=== PATIENT | female | born 1985 | race Caucasian/White ===

== ENCOUNTER 2019-12-02 08:28 | Outpatient (NON) | payer BC, SELFPAY ==
[2019-12-02 19:01] LABS: SARS-CoV-2 RNA PCR Negative
== END 2019-12-02 08:29 ==
PROVIDERS: PCP Family Medicine
DX: Z20.828 Contact with and (suspected) exposure to other viral communicable diseases (principal); R05 Cough
CPT/HCPCS: 87635; C9803; U0003

== ENCOUNTER → 2020-09-13 10:46 | Outpatient (CLI) | payer BC, SELFPAY ==
--- NOTE | ~2020-09-13 | XR_ITS ---
XR foot RT min 3V DATE: 09/13/2020 11:03 INDICATION: Right foot pain, tenderness over second and third tarsometatarsal areas TECHNIQUE: 4 views COMPARISON: None FINDINGS: No recent fracture or dislocation, periosteal reaction or bone destruction is detected. Mil d hallux valgus and bunion deformity. IMPRESSION: No recent recent fracture or dislocation Mild hallux valgus and bunion deformity Reviewed, dictated and finalized at location B.
== END ==
PROVIDERS: PCP Physician Assistant Medical; Visit Provider Physician Assistant Medical
DX: M20.11 Hallux valgus (acquired), right foot (principal)
CPT/HCPCS: 73630

== ENCOUNTER → 2021-02-03 08:01 | Outpatient (CLI) | payer BC, SELFPAY ==
[2021-02-03 19:47] LABS: SARS-CoV-2 RNA PCR Positive
== END ==
PROVIDERS: PCP Family Medicine; Visit Provider Family Medicine
DX: U07.1 COVID-19 (principal)
CPT/HCPCS: C9803; U0003; U0005

== ENCOUNTER 2021-04-18 10:01 | Emergency (ER) | payer BC, SELFPAY ==
[2021-04-18 10:08] VITALS: BP 137/93; PULSE 84; RESP 16; TEMP 36.6; O2SAT 99
--- NOTE | 2021-04-18 10:20 | ED.URI ---
HPI - URI/Sore Throat General Chief Complaint: Upper Respiratory Infection Stated Complaint: Sore throat Time Seen by Provider: 04/18/21 10:23 Source: patient and RN notes reviewed Mode of arrival: ambulatory Limitations: no limitations History of Present Illness HPI Narrative: 35-year-old female presents with concern for sore throat for 2 weeks. She reports nasal drainage. She reports a history of asthma, she is not been using all of her medications recently for fear she might get thrush and make her sore throat worse. She reports a history of thrush in the past. She denies any current symptoms of thrush. She reports intermittent headaches. She denies cough, shortness of breath, fever, body aches, chills, sweats. She reports fatigue. MD elicited complaint: sore throat Related Data Home Medications Medication Instructions Recorded Confirmed cetirizine 10 mg tablet 10 mg PO DAILY 06/19/19 04/18/21 dupilumab 300 mg/2 mL subcutaneous 300 mg SUB-Q .D2cauxw ml 06/19/19 04/18/21 syringe fluticasone propionate 50 2 spray NASAL DAILY 06/19/19 04/18/21 mcg/actuation nasal spray,suspension fluticasone propionate 115 2 puff INHALATION BID 03/07/21 04/18/21 mcg-salmeterol 21 mcg/actuation HFA inhaler Allergies Allergy/AdvReac Type Severity Reaction Status Date / Time budesonide Allergy Unknown Verified 04/18/21 10:16 levofloxacin [From Levaquin] Allergy Unknown Verified 04/18/21 10:16 moxifloxacin Allergy Unknown Verified 04/18/21 10:16 Review of Systems Review of Systems: CONSTITUTIONAL: Denies malaise, chills, sweats, or fever. EYES: Denies visual changes, redness, or discharge. ENT: Reports rhinorrhea. Denies congestion, sinus pain, otalgia. Reports sore throat. CARDIOVASCULAR: Denies chest pain, palpitations, or edema. RESPIRATORY: Denies cough. Denies dyspnea. GASTROINTESTINAL: Denies abdominal pain, nausea, vomiting, diarrhea SKIN: Denies rash or itching. MUSCULOSKELETAL: Denies myalgia. NEUROLOGIC: Reports intermittent headache. All systems reviewed & are unremarkable except as noted in HPI and below PMFSH Past Medical History Medical History Capsulitis of metatarsophalangeal (MTP) joint of right foot Contusion of foot, right COVID-19 Interdigital neuroma of right foot Overweight (BMI 25.0-29.9) Surgical History Surgical History History of sinus surgery 2004 and 2009 Family History Family History Grandparent Hypertension Family history of cardiomyopathy Other Asthma Cerebrovascular accident HLD (hyperlipidemia) Social History Social History (Updated 03/07/21 @ 09:31 by Melissa Funez Ja) Alcohol intake: never Substance use: never Substance use type: does not use Additional occupation/education comments: Dental Hygienist Gender identity (if verbalized by the patient): Female Sexual Orientation (if Verbalized by the Patient): Straight or Heterosexual Comments At time of signature, agree with nursing past medical, surgical, social and family history. There is no relevant family history pertinent to the presenting complaint Exam Narrative: GENERAL: Well-appearing, well-nourished, and in no acute distress. HEAD: Normocephalic EYES: PERRLA, conjunctivae clear ENT: Nares clear, turbinates boggy, clear discharge. Mucous membranes moist. TM pearly james with sharp light reflex bilaterally; no tragal tenderness. Oropharynx not erythematous without lesions. Tonsils not enlarged and without exudate, no drooling, no hoarseness, no trismus, uvula midline. NECK: Supple. No lymphadenopathy CHEST: Clear to auscultation, breath sounds equal. No wheezing, rhonchi, rales, or stridor. No respiratory distress, speaks in full sentences. HEART: Regular rate and rhythm. No murmur heard. SKIN: Warm, dry, no rash.
== END 2021-04-18 10:45 | disposition home or self-care (01) ==
PROVIDERS: Emergency Provider Nurse Practitioner; PCP Family Medicine
DX: J02.9 Acute pharyngitis, unspecified (principal); Z86.16 Personal history of COVID-19; E66.3 Overweight; Z68.29 Body mass index [BMI] 29.0-29.9, adult
CPT/HCPCS: 87880; 99213; G0463

== ENCOUNTER → 2022-08-14 15:27 | Outpatient (CLI) | payer OTHER, SELFPAY ==
--- NOTE | ~2022-08-14 | XR_ITS ---
XR cervical spine 4-5V DATE: 08/14/2022 15:51 INDICATION: Neck pain, right arm numbness. No recent injury. TECHNIQUE: AP, open-mouth, lateral, swimmer views COMPARISON: March 29, 2012 MR cervical spine March 08, 2012 cervical spine FINDINGS: There is chronic minimal anterolisthesis at C4-5, also present on 03/08/2012. C1 and C2 are normally aligned and the odontoid process is intact. No fracture or dislocation or lock ed facet or prevertebral soft tissue swelling is detected. There is mild loss of height at C4-5 and C5-6, mild posterior spurring at C5-6. IMPRESSION: Chronic minimal anterolisthesis at C4-5 Mild to moderate degenerative disc disease at C4-5 and C5-6 Reviewed, dictated and finalized at location A.
--- NOTE | ~2022-08-14 | XR_ITS ---
XR shoulder RT min 2V DATE: 08/14/2022 15:51 INDICATION: Right shoulder pain and numbness. No recent injury. TECHNIQUE: 4 views COMPARISON: None FINDINGS: No fracture or dislocation, periosteal reaction or bone destruction. No abnormal calcificat ion. IMPRESSION: Negative Reviewed, dictated and finalized at location A. IMPRESSION: Negative
== END ==
PROVIDERS: PCP Family Medicine; Visit Provider Family Medicine
DX: M79.631 Pain in right forearm (principal); M50.322 Other cervical disc degeneration at C5-C6 level
CPT/HCPCS: 72050; 73030

== ENCOUNTER 2022-08-31 10:18 | Outpatient (CLI) | payer OTHER, SELFPAY ==
[2022-08-31 14:08] LABS: Alanine Aminotransferase 21 U/L (6-35); Albumin Level 4.3 g/dL (3.5-5.1); Alkaline Phosphatase 77 U/L (38-126); Anion Gap 2 mmol/L (8-16); Aspartate Amino Transferase 41 U/L (14-36); Bilirubin,Total 0.6 mg/dL (0.2-1.3); Blood Urea Nitrogen 14 mg/dL (7-17); Calcium 8.8 mg/dL (8.4-10.2); Carbon Dioxide 33 mmol/L (22-30); Chloride 102 mmol/L (98-107); Cholesterol 250 mg/dL (0-200); Estimated Glomerular Filt Rate > 60; Glucose 91 mg/dL (65-110); HDL Direct 61 mg/dL; Potassium 3.7 mmol/L (3.4-5.0); Sodium 137 mmol/L (137-145); Triglycerides 141 mg/dL (<150)
[2022-08-31 14:20] LABS: LDL Cholesterol Direct 137 mg/dL
[2022-08-31 14:29] LABS: Free T4 Free Thyroxine 1.19 ng/mL (0.78-2.19); Vitamin D 25 Hydroxy 48.5 ng/mL
[2022-08-31 23:13] LABS: Hemoglobin A1C 5.9 % (<5.7)
[2022-09-03 02:48] LABS: DHEA-Sulfate 210 mcg/dL (23-266); Thyroid Peroxidase Antibodies <1 IU/mL (<9)
[2022-09-04 13:01] LABS: Testosterone Free 1.5 pg/mL (0.2-5.0); Testosterone Total 40 ng/dL (2-45)
== END 2022-08-31 10:19 | disposition home or self-care (01) ==
PROVIDERS: PCP Family Medicine; Visit Provider Internal Medicine
DX: R53.83 Other fatigue (principal); R63.5 Abnormal weight gain
CPT/HCPCS: 36415; 80053; 80061; 82306; 82607; 82627; 83036; 84402; 84403; 84439; 84443; 86376

== ENCOUNTER 2022-09-04 08:35 | Outpatient (CLI) | payer OTHER, SELFPAY ==
[2022-09-15 17:46] LABS: Cortisol, Saliva 0.29 mcg/dL
== END 2022-09-04 08:36 | disposition home or self-care (01) ==
PROVIDERS: PCP Family Medicine; Visit Provider Internal Medicine
DX: R63.5 Abnormal weight gain (principal); R53.83 Other fatigue
CPT/HCPCS: 82530

== ENCOUNTER 2022-09-05 09:43 | Outpatient (NON) | payer OTHER, SELFPAY ==
[2022-09-13 22:52] LABS: Cortisol, Saliva 0.32 mcg/dL
== END 2022-09-05 09:44 | disposition home or self-care (01) ==
PROVIDERS: PCP Family Medicine; Visit Provider Internal Medicine
DX: R63.5 Abnormal weight gain (principal)
CPT/HCPCS: 82530

== ENCOUNTER 2022-11-07 11:12 | Outpatient (CLI) | payer OTHER, SELFPAY | END 2022-11-07 11:13 | disposition home or self-care (01) | LOC: ANHSURGERY 11:16 | PROVIDERS: PCP Family Medicine; Visit Provider Surgery | DX: K43.6 Other and unspecified ventral hernia with obstruction, without gangrene (principal); Z01.818 Encounter for other preprocedural examination | CPT/HCPCS: 36415; 86850; 86900; 86901 ==

== ENCOUNTER 2022-11-14 01:41 | Day surgery (SDC) | payer OTHER, SELFPAY ==
[2022-11-06 08:37] VITALS: BMI 31.3
--- NOTE | 2022-11-06 08:45 | PC.NURSE ---
Report to the Outpatient Waiting Room, entrance under the green pavilion located off [facility], at time 10:00 on date 11/14/22. Planned Procedure Time: 12:00. Time changes happen often and if your time is changed the preop area will call you the afternoon before. - You and your visitor will be asked to self-screen and do not enter if you have any COVID symptoms. - A mask is optional within the hospital at this time. Patients may have clear liquids (water, carbonated beverages, clear teas, apple juice) until 3 hours prior to surgery (9:00) with a maximum of 20 ounces. - No food from midnight until time of surgery Take the following medications with a SIP of water the morning of surgery: INHALER, ESCITALOPRAM, FLUOXETINE DO NOT STOP ANY OF YOUR OTHER PRESCRIPTION MEDICATIONS PRIOR TO SURGERY ?EXCEPT THE FOLLOWING Medications to discontinue per physician: VITAMINS/SUPPLEMENTS Date to take last dose: 11/10/22 Please no make-up, nail yi, hairspray, perfume, deodorant, or body powder the day of surgery. No jewelry (including any body piercings) or valuables the day of surgery, leave them at home. Please take a shower or bath the night before, or the morning of, surgery with an antibacterial soap (HIBICLENS). Wear comfortable, loose fitting clothing. - Jewelry must be removed prior to entering the operating room. Rings and piercings that are not removed may be cut off. - The hospital will not accept responsibility for valuables. - Please leave all valuables, including medications, at home the day of surgery. If you are going home after surgery, a licensed driver salesman must drive you home. - NO public transportation without another adult if you receive anesthesia. - We recommend that an adult stay with you for 24 hours following discharge. - We also recommend that you do not drive, make important decision, drink alcoholic beverages, or take any drugs that were not prescribed by your health care provider for at least 24 hours after your discharge time. Follow any additional instructions given to you from your surgeon. If you or anyone in your household have experienced Covid symptoms in the past week, please notify your surgeon or the nurse liaison at the phone number below for possible testing. Telephone instructions given to PT - JOCELYNE CLEMENT and asked if any additional questions and then verbalized understanding. Patient advised to call surgeon office or pre surgery nurse liaison [phone] if any additional questions.
[2022-11-14] VITALS (9 sets, daily range): BP systolic 110–124; BP diastolic 66–76; PULSE 72–96; RESP 14–17; TEMP 36.3–36.4; O2SAT 96–100
[2022-11-14] MEDS: LACTATED RINGERS 1,000 ML 30 ML IV CONT ×2 (10:30→16:35)
[2022-11-14 11:00] LABS: Glucose Point of Care 81 mg/dl (65-105)
--- NOTE | 2022-11-14 12:44 | WPDANESEPPF ---
Anes - Initial Pre Proc Eval Procedure: Operation Date: 11/14/22 12:00 Proposed Procedures p Robotic Assisted Laparoscopic Ventral Hernia Repair with Mesh - Cosme Bee MD Date/Time: 11/14/22 12:44 Surgeon: Cosme Bee MD Pre Op Diagnosis: [facility] ventral hernia Patient Data Age: 37 Gender: F Height: 1.7 m Weight: 89.2 kg Last Vital Signs Temp 36.3 C L 11/14/22 11:15 Pulse 84 11/14/22 11:15 Resp 16 11/14/22 11:15 BP 110/75 11/14/22 11:15 Pulse Ox 99 11/14/22 11:15 O2 Del Method Room Air 11/14/22 11:15 Allergies Allergy/AdvReac Type Severity Reaction Status Date / Time Quinolones Allergy Unknown Joint Pain Verified 11/06/22 08:34 montelukast [From Singulair] AdvReac Unknown Depression Verified 11/06/22 08:34 Home Medications Medication Instructions Recorded Confirmed Type dupilumab 300 mg/2 mL subcutaneous 300 mg subcut .[id number] 06/19/19 11/06/22 History syringe (Dupixent) fluticasone propionate 50 2 spray intranasal DAILY 06/19/19 11/06/22 History mcg/actuation nasal spray,suspension fluticasone propionate 115 2 puff inhalation BID 03/07/21 11/06/22 History mcg-salmeterol 21 mcg/actuation HFA inhaler (Advair HFA) norgestimate-ethinyl estradiol 1 tablet PO DAILY 12/15/21 11/06/22 History 0.18 mg/0.215mg/0.25mg-35 mcg(28)tablet (Tri-Sprintec (28)) fluoxetine 20 mg capsule (Prozac) 20 mg PO DAILY #90 caps 08/14/22 11/06/22 Rx dextroamphetamine-amphetamine ER 20 mg PO DAILY #30 caps 08/24/22 11/06/22 Rx 20 mg 24hr capsule,extend release (Adderall XR) cholecalciferol (vitamin D3) 125 125 mcg PO DAILY 08/29/22 11/06/22 History mcg (5,000 unit) capsule escitalopram oxalate 20 mg tablet See Rx Instructions .Route 11/03/22 11/06/22 Rx .COMPLEX #90 tabs loratadine 10 mg tablet (Claritin) 10 mg PO DAILY 11/06/22 11/06/22 History vitamin B complex 1 tablet PO DAILY 11/06/22 11/06/22 History Laboratory Tests 11/14/22 10:51 POC Capillary Glucose 81 mg/dl (65-105) Patient hx anesthesia problems: none Family hx anesthesia problems: none Results Review: All pre-operative results and documents have been reviewed as part of the pre-operative evaluation. [facility] Past Medical History Medical History Asthma Attention-deficit hyperactivity disorder, unspecified type Binge eating disorder Capsulitis of metatarsophalangeal (MTP) joint of right foot Cervicalgia Contusion of foot, right COVID-19 Degenerative, intervertebral disc, cervical C4-5, C5-6 Depression Gastroesophageal reflux disease without esophagitis Hemiplegic migraine, not intractable, without status migrainosus Interdigital neuroma of right foot Nasal polyp, unspecified Overweight (BMI 25.0-29.9) Psoriasis, unspecified Rotator cuff impingement syndrome of right shoulder Seborrheic dermatitis, unspecified Severe persistent asthma with exacerbation Spinal stenosis in cervical region Tension headache Surgical History Surgical History History of sinus surgery 2004 and 2009 Family History Family History Grandparent Hypertension Family history of cardiomyopathy CHD (congenital heart disease) Cerebrovascular accident Depression Mother Heart disease Depression Father Depression Heart disease Other HLD (hyperlipidemia) Social History Social History Smoking status: Never smoker Alcohol intake: current Alcohol use details: 2/MONTH Substance use: current Substance use type: marijuana Other substance usage details: EDIBLE MONTHLY Lack of Transportation: No Lack of Food: Never True Current Housing: I Have Housing Concerned About Future Housing: No Difficulty Paying Gas/Electric Bills: No Difficulty Paying for Meds:
--- NOTE | 2022-11-14 12:54 | PM.IMHP ---
H&P: HPI History of Present Illness Date/Time: 11/14/22 12:54 Chief Complaint: Incarcerated ventral hernia Narrative: Farida is a 37 y/o female who presents with an umbilical hernia at the request of Dr. Esteban. She started experiencing symptoms in 2016 with her first . She states the area above her umbilicus is tender with activity and when coughing. She reports gaining about 20lbs recently and does not notice a bulge quite as much. She is having regular BM's without difficulty. She has a surgical history of bilateral inguinal hernias as a child.? Review of Systems Review of Systems: The remainder of the review of systems to include constitutional, HEENT, cardiovascular, respiratory, GI, , integumentary, musculoskeletal, endocrine, immunologic, hematologic, psychiatric, and neurologic are all negative except for which is mentioned above in the HPI. [facility] Past Medical History Medical History Asthma Attention-deficit hyperactivity disorder, unspecified type Binge eating disorder Capsulitis of metatarsophalangeal (MTP) joint of right foot Cervicalgia Contusion of foot, right COVID-19 Degenerative, intervertebral disc, cervical C4-5, C5-6 Depression Gastroesophageal reflux disease without esophagitis Hemiplegic migraine, not intractable, without status migrainosus Interdigital neuroma of right foot Nasal polyp, unspecified Overweight (BMI 25.0-29.9) Psoriasis, unspecified Rotator cuff impingement syndrome of right shoulder Seborrheic dermatitis, unspecified Severe persistent asthma with exacerbation Spinal stenosis in cervical region Tension headache Surgical History Surgical History History of sinus surgery 2004 and 2009 Family History Family History Grandparent Hypertension Family history of cardiomyopathy CHD (congenital heart disease) Cerebrovascular accident Depression Mother Heart disease Depression Father Depression Heart disease Other HLD (hyperlipidemia) Social History Social History Smoking status: Never smoker Alcohol intake: current Alcohol use details: 2/MONTH Substance use: current Substance use type: marijuana Other substance usage details: EDIBLE MONTHLY Lack of Transportation: No Lack of Food: Never True Current Housing: I Have Housing Concerned About Future Housing: No Difficulty Paying Gas/Electric Bills: No Difficulty Paying for Meds: No Currently Unemployed: No Education: Associate Degree Difficulty w/ Childcare or Family Care: No Living arrangements: with family Occupation/Education: occupation Additional occupation/education comments: Dental Hygienist Gender identity (if verbalized by the patient): Female Sexual Orientation (if Verbalized by the Patient): Straight or Heterosexual Spiritual care concerns: No Meds Home Medications and Allergies Home Medications Medication Instructions Recorded Confirmed Type dupilumab 300 mg/2 mL subcutaneous 300 mg subcut .[id number] 06/19/19 11/06/22 History syringe (Dupixent) fluticasone propionate 50 2 spray intranasal DAILY 06/19/19 11/06/22 History mcg/actuation nasal spray,suspension fluticasone propionate 115 2 puff inhalation BID 03/07/21 11/06/22 History mcg-salmeterol 21 mcg/actuation HFA inhaler (Advair HFA) norgestimate-ethinyl estradiol 1 tablet PO DAILY 12/15/21 11/06/22 History 0.18 mg/0.215mg/0.25mg-35 mcg(28)tablet (Tri-Sprintec (28)) fluoxetine 20 mg capsule (Prozac) 20 mg PO DAILY #90 caps 08/14/22 11/06/22 Rx dextroamphetamine-amphetamine ER 20 mg PO DAILY #30 caps 08/24/22 11/06/22 Rx 20 mg 24hr capsule,extend release (Adderall XR) cholecalciferol (vitamin D3) 125 125 mcg PO DAILY 08/29/22 11/06/22 History mcg (5,000
--- NOTE | 2022-11-14 12:57 | WPDHPUPDATE1 ---
History and Physical Update Update Date/Time: 11/14/22 12:57 History and Physical has been reviewed, including an updated exam of the patient. There are NO changes in the patient's condition. Risks, benefits, and alternatives have been discussed and questions answered. Patient agrees to proceed with procedure.
[2022-11-14] MEDS: ceFAZolin 2 GM/D5W 50 ML 2 GM/50 ML BAG IVPB (13:58)
[2022-11-14] MEDS: LIDO 1%/EPINEPHRINE 1:100,000 50 ML VIAL 30 ML INFILTRATE (14:37)
--- NOTE | 2022-11-14 16:27 | P.OPB_ITS ---
Procedure Note - Brief Procedure Note - Brief Date of procedure: 11/14/22 [facility] ventral hernia Post-op diagnosis: Same Procedure performed: Robotic assisted laparoscopic YULISSA incarcerated ventral hernia repair with Bard Ventralight ST mesh Surgeon: Cosme Bee MD Materials And Corrosion Engineer: KRYSTEN Patel Anesthesia: GETA Implants: Bard Ventralight ST mesh 10 x 15 cm Estimated blood loss (mL): 25 Drains: No Packing: No Pathology: None sent Complications: No immediate complications Condition: Stable Disposition: PACU
[2022-11-14] MEDS: fentaNYL CITRATE INJ (*CRX) 100 MCG/2 ML VIAL 25 MCG IV PUSH ×2 (16:59→17:02)
[2022-11-14] MEDS: oxyCODONE HCL (*CRX) 5 MG TAB IR PO (17:30)
--- NOTE | 2022-11-16 13:06 | W.PM.PROC2 ---
Procedure Note - Detailed Date of Procedure 11/14/22 Pre-op Diagnosis incarc ventral hernia Post-op Diagnosis Same Procedure Performed Robotic assisted laparoscopic ventral hernia repair with trans abdominal preperitoneal placement of Bard Ventralight ST mesh Surgeon Cosme Bee MD Advertisement Distributor Traec Mcfarland, KRYSTEN Tejeda Anesthesia General Indications Patient is a 37-year-old female who presented with a bulge in the supraumbilical region of the abdominal wall causing some mild tenderness on examination she appeared to have an incarcerated periumbilical or supraumbilical ventral hernia. She presents now for a robotic assisted laparoscopic ventral hernia repair with mesh. Preoperative assessment of the hernia defect revealed it to be approximately 2cm in diameter but unable to fully tell due to incarceration of contents. Findings At the time of surgery there are actually 3 small defects in the area the largest of which was 3.5cm in diameter followed by a smaller 1 very close to it measuring 2.5cm diameter and lastly another very small about 1cm in diameter. All 3 of these defects were by small bridge of intact fascia causing this Finnish-cheese affect of the defect. Total aggregate defect size was approximately 7cm in diameter and each of the defects were by less than 2cm. Incarcerated within the defect were preperitoneal fat and a portion of the falciform ligament. Description of Procedure After informed consent was obtained patient was brought to the operating room where she was placed supine position and general endotracheal anesthesia was administered. A Hua catheter was placed decompress the bladder. The abdomen was then prepped and draped in usual sterile fashion. A time-out was then performed correctly identifying the patient as well as procedure to be performed. She was verified to be getting perioperative IV antibiotics. I then started by placing a 10mm Optiview port in left upper quadrant with a direct optical insertion. Once inside the abdomen insufflated to adequate pneumoperitoneum of 15mmHg of CO2. I then placed additional body trocar ports on the left side of the abdomen under direct visualization without difficulty. Visualizing the undersurface of the anterior abdominal wall there were no obvious defects to be seen initially and it appeared that the defects were covered with preperitoneal fat and a portion of the falciform ligament. I then had [employer] robot brought to the patient's bedside and docked to the right side of the patient. The robotic arms were then docked to the robotic ports and the robotic instruments were advanced into the abdomen under direct visualization. I then scrubbed out the procedure to sit down at the robotic console to perform the dissection. Utilizing robotic hook dissection I then incised the peritoneum to the left of the defect and then entered the preperitoneal plane. I then created the preperitoneal flap identifying the there were multiple small fascial defects in a with cheese configuration the 3 defects were relatively close in location but by small intact fascial bridges.. I then proceeded to reduce the preperitoneal fat with robotic dissection and found that the largest defect contained a portion of the falciform ligament. After all the incarcerated fatty tissue was reduced out of the defects I then measured the defects in the largest 1 measured 3.5cm diameter. A 2nd small defect was 2.5cm diameter and a 3rd smaller defect was only 1cm in diameter. I then continued creation of the preperitoneal flap the right side of the abdominal wall and once I felt I had adequate preperitoneal dissection I then measured the space and felt that a piece of Ventralight ST mesh measuring 15cm in length by 10cm in width would adequately cover the hernia defects. I then closed the multiple hernia defects primarily utilizing 0 absorbable V lock sutures. All 3 defects were ivy
== END 2022-11-14 18:08 | disposition home or self-care (01) ==
PROVIDERS: PCP Family Medicine; Visit Provider Surgery
PROC: (CPT 49594; principal; 2022-11-14 12:00)
DX: K43.6 Other and unspecified ventral hernia with obstruction, without gangrene (principal); F90.9 Attention-deficit hyperactivity disorder, unspecified type; J45.909 Unspecified asthma, uncomplicated; K21.9 Gastro-esophageal reflux disease without esophagitis; F32.A Depression, unspecified; L40.9 Psoriasis, unspecified; F12.90 Cannabis use, unspecified, uncomplicated; Z79.620 Long term (current) use of immunosuppressive biologic; Z79.51 Long term (current) use of inhaled steroids
CPT/HCPCS: 49594; S2900; 36415; 82948; 86850; 86900; 86901; A9270; C1781; J0690; J1100; J1170; J1885; J2250; J2405; J2704; J3010; J7120

== ENCOUNTER 2023-03-26 19:18 | Outpatient (NON) | payer OTHER, SELFPAY | END 2023-03-26 19:19 | disposition home or self-care (01) | LOC: ANHGOSHLAB 19:20 | PROVIDERS: PCP Family Medicine; Visit Provider Physician Assistant | DX: J02.9 Acute pharyngitis, unspecified (principal) | CPT/HCPCS: 87070 ==

== ENCOUNTER 2023-06-11 08:31 | Outpatient (CLI) | payer OTHER, SELFPAY ==
--- NOTE | 2023-06-26 13:42 | WPDSLEEPSTUD ---
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 The patient denies awakening from sleep short of breath. She denies awakening at night with heartburn, belching or cough. She rarely snores and a is rarely loud enough that others complain. She rarely has trouble sleeping when she has a cold. She denies waking up gasping for air throughout the night. She denies having breathing problems at night observed by herself or others. She occasionally sweats excessively at night. He denies having heart palpitations or irregular heartbeats during the night. She constantly falls asleep during the day and frequently falls asleep while driving. She rarely experiences loss of muscle tone when extremely emotional. She frequently has trouble at school or work due to sleepiness. She frequently feels unable to move while waking up or falling asleep. She rarely experiences vivid dreamlike scenes upon awakening or falling asleep. She denies feeling afraid of going to sleep. She denies having nightmares. She denies remembering her dreams. She rarely has thoughts racing through her mind. She frequently feels sad, depressed and anxious. She denies having muscular tension. She rarely notices parts of her body jerk. She rarely kicks during the night. She frequently has crawling and aching feelings in her legs but denies having leg pain during the night. She rarely grinds her teeth during sleep and rarely awakens with morning jaw pain. She is occasionally bothered by pain during the day and occasionally awakened by pain during the night. She rarely wakes up feeling stiff in the morning. She occasionally wakes up with sore or achy muscles. She occasionally wakes up with pain in the neck, spine or other joints. She goes to bed between 8-10 p.m. on both weekdays and weekends. She is able to fall asleep immediately. She wakes up 1-2 times throughout the night for unknown reasons and she will stay on her phone for 1-2 hours until she is able to fall asleep. She wakes up between 6-8 a.m. on weekdays and between 8-10 a.m. on the weekends. She typically gets 6-10 hours of sleep per night. She will stay in bed as long as she can after waking up in the morning until her kids get her up. She lives with her and 2 children. She denies consuming any caffeinated beverages within 2 hours of bedtime. She denies engaging in physical exercise before bedtime. She will watch television before falling asleep. She will occasionally take naps in the afternoon or the evening but they are not refreshing. She consumes 1-2 caffeinated beverages up to 3 times per week. She denies tobacco, alcohol and recreational drug use. [facility] Past Medical History Medical History Asthma Attention-deficit hyperactivity disorder, unspecified type Binge eating disorder Capsulitis of metatarsophalangeal (MTP) joint of right foot Cervicalgia Contusion of foot, right COVID-19 Degenerative, intervertebral disc, cervical C4-5, C5-6 Depression Gastroesophageal reflux disease without esophagitis Hemiplegic migraine, not intractable, without status migrainosus Interdigital neuroma of right foot Nasal polyp, unspecified Overweight (BMI 25.0-29.9) Pre-diabetes Psoriasis, unspecified Rotator cuff impingement syndrome of right shoulder Seborrheic dermatitis, unspecified Severe persistent asthma with exacerbation Spinal stenosis in cervical region Tension headache Surgical History Surgical History H/O
[2023-06-26 13:43] VITALS: BMI 31.3
[2023-06-26 13:59] VITALS: BMI 31.3
--- NOTE | 2023-06-26 13:59 | WPDSLEEPSTUD ---
Sleep Study Date of Study: 06/11/23 Ordering Provider: Haleigh Hoffmann DO Interpreting Physician: Haleigh Hoffmann DO Sleep Study Type: Multiple Sleep Latency Test Height: 1.7 m Weight: 90.718 kg Body Mass Index: 31.3 Neck Circumference (inches): 12 Samson: 20 Reason for Sleep Study Hypersomnia Sleep History The patient is a 37-year-old female who works as a dental hygienist that had a sleep study ordered for hypersomnia. The patient denies awakening from sleep short of breath. She denies awakening at night with heartburn, belching or cough. She rarely snores and a is rarely loud enough that others complain. She rarely has trouble sleeping when she has a cold. She denies waking up gasping for air throughout the night. She denies having breathing problems at night observed by herself or others. She occasionally sweats excessively at night. He denies having heart palpitations or irregular heartbeats during the night. She constantly falls asleep during the day and frequently falls asleep while driving. She rarely experiences loss of muscle tone when extremely emotional. She frequently has trouble at school or work due to sleepiness. She frequently feels unable to move while waking up or falling asleep. She rarely experiences vivid dreamlike scenes upon awakening or falling asleep. She denies feeling afraid of going to sleep. She denies having nightmares. She denies remembering her dreams. She rarely has thoughts racing through her mind. She frequently feels sad, depressed and anxious. She denies having muscular tension. She rarely notices parts of her body jerk. She rarely kicks during the night. She frequently has crawling and aching feelings in her legs but denies having leg pain during the night. She rarely grinds her teeth during sleep and rarely awakens with morning jaw pain. She is occasionally bothered by pain during the day and occasionally awakened by pain during the night. She rarely wakes up feeling stiff in the morning. She occasionally wakes up with sore or achy muscles. She occasionally wakes up with pain in the neck, spine or other joints. She goes to bed between 8-10 p.m. on both weekdays and weekends. She is able to fall asleep immediately. She wakes up 1-2 times throughout the night for unknown reasons and she will stay on her phone for 1-2 hours until she is able to fall asleep. She wakes up between 6-8 a.m. on weekdays and between 8-10 a.m. on the weekends. She typically gets 6-10 hours of sleep per night. She will stay in bed as long as she can after waking up in the morning until her kids get her up. She lives with her and 2 children. She denies consuming any caffeinated beverages within 2 hours of bedtime. She denies engaging in physical exercise before bedtime. She will watch television before falling asleep. She will occasionally take naps in the afternoon or the evening but they are not refreshing. She consumes 1-2 caffeinated beverages up to 3 times per week. She denies tobacco, alcohol and recreational drug use. [facility] Past Medical History Medical History Asthma Attention-deficit hyperactivity disorder, unspecified type Binge eating disorder Capsulitis of metatarsophalangeal (MTP) joint of right foot Cervicalgia Contusion of foot, right COVID-19 Degenerative, intervertebral disc, cervical C4-5, C5-6 Depression Gastroesophageal reflux disease without esophagitis Hemiplegic migraine, not intractable, without status migrainosus Interdigital neuroma of right foot Nasal polyp, unspecified Overweight (BMI 25.0-29.9) Pre-diabetes Psoriasis, unspecified Rotator cuff impingement syndrome of right shoulder Seborrheic dermatitis, unspecified Severe persistent asthma with exacerbation Spinal stenosis in cervical region Tension headache Surgical History Surgical History (Reviewed 06/26/23 @ 14:00 by Haleigh Anderson
== END 2023-06-12 16:15 | disposition home or self-care (01) ==
LOC: ANHCSM 08:32
PROVIDERS: PCP Family Medicine; Visit Provider Family Medicine
DX: G47.19 Other hypersomnia (principal); G47.61 Periodic limb movement disorder
CPT/HCPCS: 95805; 95810

== ENCOUNTER 2023-06-26 10:09 | Outpatient (CLI) | payer OTHER, SELFPAY ==
--- NOTE | ~2023-06-26 | MR_ITS ---
MRI of the right shoulder Technique: Axial proton-density fat-sat images, coronal proton density fat-sat and T2 fat-sat images, and sagittal T1-weighted and T2 fat-sat images were acquired. Clinical History: Instability Findings: There is mild AC joint degenerative change, with small subacromial spur present. Coracoclav icular, coracoacromial, and coracohumeral ligaments are intact. Supraspinatus and infraspinatus tendons are intact, without partial or full thickness tear. There is mild tendinosis. Subscapularis tendon is intact, with mild tendinosis. Tendon of the long head of the biceps is intact. There is probable focal superior labral tear. Inferior glenohumeral ligament is intact. No degenerative change or effusion of the glenohumeral join t. No fluid distention of the subacromial/subdeltoid bursa. No muscle atrophy or edema. Impression: Probable focal superior labral tear. Reviewed, dictated and finalized at location . Impression: Probable focal superior labral tear.
== END 2023-06-26 10:10 ==
LOC: MICIMG 10:12
PROVIDERS: PCP Orthopaedic Surgery; Visit Provider Orthopaedic Surgery
DX: M25.311 Other instability, right shoulder (principal); M48.02 Spinal stenosis, cervical region; M75.41 Impingement syndrome of right shoulder
CPT/HCPCS: 73221

== ENCOUNTER 2024-10-24 08:50 | Outpatient (CLI) | payer OTHER, SELFPAY ==
--- OUTSIDE RECORDS SUMMARY | 2023-07-03 12:30 | XMS_ITS ---
Author Organization [facility] ([address]) Address [address] [place] [address] Care Team Providers Care Supervisor Agricultural Education Name Role Phone Remi Rodriguez M.D. Primary Care Provider Mary Cristopher Power Unavailable [phone] Emmanuel Hall Unavailable Unavailable Michael Slater [phone] REASON FOR VISIT INTERIOR BLOCK WIRER Weight Loss Social History Sex Assigned At : Social History Observation Description Sex Assigned At Female Encounters Encounter Location Date Provider Diagnosis [facility] ([address]) [address] [address] 07/03/2023 Michael Slater Plan Of Treatment No Information Progress Notes * Neena CLEMENTaDOB:1985 ( 39 yo F)Acc No.[id number]:07/03/2023 INTERIOR BLOCK WIRER Weight Loss Patient: Farida WOODALL Provider: Roque Slater MD :1985 A ge:37 Y S ex:Female Date:07/03/2023 Address:[address] [facility] [address] [id number] Pcp:Remi Rodriguez M.D. Subjective: * Chief Complaints: * 1 . INTERIOR BLOCK WIRER Weight Loss. * Medical History: Objective: * Vitals: Assessment: Plan: * Treatment: * Billing Information: * Visit Code: * Procedure Codes: * Electronic signature of Cornelio Slater MD, FAAAAI on 10/24/2024 at 09:03 AM CDT Sign off status: Pending * Provider: Roque Slater MD Date: 0 07/03/2023 Generated for Mary garcia/Yessenia/Francisco on: 0 10/24/2024 09:03 AM CDT
--- OUTSIDE RECORDS SUMMARY | 2023-07-28 16:30 | XMS_ITS ---
Author Organization [employer] [facility] [place] ([address]) Address [address] [place] [address] Care Team Providers Care Weed Burner Name Role Phone Remi Rodriguez M.D. Primary Care Provider Mary Cristopher Power Unavailable [phone] Emmanuel Hall Unavailable Unavailable [employer], Provider Unavailable Unavailab le Allergies Allergen (clinical drug ingredient) Drug/Non Drug Allergy documented on EMR Reaction Allergy Type Onset Date Status levofloxacin levoFLOXacin other reaction Drug Allergy Active montelukast Singulair other reaction Drug Allergy Active REASON FOR VISIT [facility] To [facility] Conversion Encounter Medications Medication SIG (Take, Route, Frequency, Duration) Notes Start Date End Date Status AEROCHAMBER MDI SPACER - MOUTHPIECE (ADULT) N/A DIRECTED PO PER ASTHMA ACTION PLAN; Duration: 30 DAY(S) *Please review for potential replacement for e-prescription and drug interaction check* Active DUPIXENT (DUPILUMAB) 300 MG/2 ML 300 MG SUBCUATNEOUS INJECTION EVERY OTHER WEEK; Duration: 120 DAYS *Please review for potential replacement for e-prescription and drug interaction check* Active Advair HFA 230-21 MCG/ACT 2 puff(s) inhaled 2 times a day; Duration: 30 day(s) Active PROAIR HFA 90 MCG/INH 2 PUFF(S) INHALED 4 TIMES A DAY *Please review for potential replacement for e-prescription and drug interaction check* Active Albuterol Sulfate (5 MG/ML) 0.5% 0.5 mL by nebulizer every 6 hours Active Singulair 10 MG 1 tab(s) orally once a day Not-Taking Flonase Allergy Relief 50 MCG/ACT 1 spray(s) intranasally once a day Active ZyrTEC Allergy 10 MG 1 tab(s) orally once a day Active Benzonatate 100 MG 1 cap(s) orally 3 times a day; Duration: 5 day(s) 11/15/2021 Not-Taking NASAL WASHES N/A DIRECTED INTRANASALLY NEEDED; Duration: 30 *Please review for potential replacement for e-prescription and drug interaction check* Active Wellbutrin XL 300 MG 1 tab(s) orally every 24 hours; Duration: 30 day(s) Not-Taking Adderall XR 20 MG 1 cap(s) orally once a day (in the morning); Duration: 30 day(s) Not-Taking CONTROL PILL 1 TABLET BY MOUTH DAILY; Duration: 30 DAYS *Please review for potential replacement for e-prescription and drug interaction check* Active Lexapro 20 MG 1 tab(s) orally once a day Active predniSONE 20 MG 1 tab(s) orally once a day; Duration: 7 day(s) 11/15/2021 Not-Taking LISDEXAMFETAMINE 40 MG 1 CAP(S) ORALLY ONCE A DAY (IN THE MORNING) *Please review for potential replacement for e-prescription and drug interaction check* Active Social History Sex Assigned At : Social History Observation Description Sex Assigned At Female Encounters Encounter Location Date Provider Diagnosis [address] [address] 07/28/2023 Provider Mone Severe persistent asthma, uncomplicated J45.50 and Allergic rhinitis due to pollen J30.1 Assessments Encounter Date Diagnosis (ICD Code) Assessment Notes Treatment Notes Treatment Clinical Notes Section Notes 07/28/2023 Severe persistent asthma, uncomplicated (ICD-10 - J45.50) 07/28/2023 Allergic rhinitis due to pollen (ICD-10 - J30.1) Plan Of Treatment Medication Medication Name Sig Start Date Stop Date Notes AEROCHAMBER MDI SPACER - MOUTHPIECE (ADULT) N/A DIRECTED PO PER ASTHMA ACTION PLAN; Duration: 30 DAY(S) *Please review for potential replacement for e-prescription and drug interaction check* DUPIXENT (DUPILUMAB) 300 MG/2 ML 300 MG SUBCUATNEOUS INJECTION EVERY OTHER WEEK; Duration: 120 DAYS *Please review for potential replacement for e-prescription and drug interaction check* Advair HFA 230-21 MCG/ACT 2 puff(s) inhaled 2 times a day; Duration: 30 day(s) PROAIR HFA 90 MCG/INH 2 PUFF(S) INHALED 4 TIMES A DAY *Please review for potential replacement for e-prescription and drug interaction check* Albuterol Sulfate (5 MG/ML) 0.5% 0.5 mL by nebulizer every 6 hours Flonase Allergy Relief 50 MCG/ACT 1 spray(s) intranasally once a day ZyrTEC Allergy 10 MG 1 tab(s) orally onc e a day NASAL WASHES N/A DIRECTED INTRANASALLY NEEDED; Duration: 30 *Please review for potential replacement for e-prescription and drug interaction check* Progress Notes * Xiang CLEMENTB:1985 ( 39 yo F)Acc No.[id number]:07/28/2023 Patient: Farida WOODALL Provider: Roque Servin :1985 A ge:37 Y S ex:Female Date:07/28/2023 Address:[address] [place] [address] [address] [facility], [id number] Pcp:Remi Rodriguez M.D. Subjective: * Chief Complaints: * 1 . Multum To Medispan Conversion Encounter. * Medical History: * Medications: T aking LISDEXAMFETAMINE 40 MG CAPSULE 1 CAP(S) ORALLY ONCE A DAY (IN THE MORNING) , Notes to Pharmacist: *Please review for potential replacement for e-prescription and drug interaction check*, Taking CONTROL PILL 1 TABLET BY MOUTH DAILY , Notes to Pharmacist: *Please review for potential replacement for e-prescription and drug interaction check*, Taking Lexapro 20 MG Tablet 1 tab(s) orally once a day , Not-Taking/PRN Wellbutrin XL 300 MG Tablet Extended Release 24 Hour 1 tab(s) orally every 24 hours , Not-Taking/PRN Adderall XR 20 MG Capsule Extended Release 24 Hour 1 cap(s) orally once a day (in the morning) , Not-Taking/PRN predniSONE 20 MG Tablet 1 tab(s) orally once a day , Not-Taking/PRN Benzonatate 100 MG Capsule 1 cap(s) orally 3 times a day , Not-Taking/PRN Singulair 10 MG Tablet 1 tab(s) orally once a day * Allergies: S ingulair: other reaction, levoFLOXacin: other reaction. Objective: * Vitals: Assessment: * Assessment: 1. S evere persistent asthma, uncomplicated - J45.50 (Primary) 2 . A llergic rhinitis due to pollen - J30.1 Plan: * Treatment: 2. A llergic rhinitis due to pollen Continue Flonase Allergy Relief Suspension, 50 MCG/ACT, 1 spray(s), intranasally, once a day; C ontinue ZyrTEC Allergy Tablet, 10 MG, 1 tab(s), orally, once a day; C ontinue NASAL WASHES 1 QUART OF STERILIZED TAP WATER OR DISTILLED WATER, 1 TSP NACL, 1 PINCH OF BAKING SODA, N/A, DIRECTED, INTRANASALLY, NEEDED, 30, QS, Refills PRN, Notes to Pharmacist: *Please review for potential replacement for e-prescription and drug interaction check*. * Billing Information: * Visit Code: * Procedure Codes: * Electronic signature of Yolie BEGUM-Migration on 10/24/2024 at 09:03 AM CDT Sign off status: Pending * Provider: Roque grimes Migration Date: 07/28/2023 Generated for Mary garcia/Yessenia/Francisco on: 10/24/2024 09:03 AM CDT
--- OUTSIDE RECORDS SUMMARY | 2023-10-30 12:30 | XMS_ITS ---
Author Organization [facility] [place] ([address]) Address [address] [place] [address] Care Team Providers Care Gas Fitter Apprentice Name Role Phone Remi Rodriguez M.D. Primary Care Provider Mary vailaCristopher Storm Unavailable [phone] Emmanuel Hall Unavailable Unavailable REASON FOR VISIT Skin testing Social History Sex Assigned At : Social History Observation Description Sex Assigned At Female Encounters Encounter Location Date Provider Diagnosis [facility] [address] [place] [address] 10/30/2023 Cristopher Krueger Plan Of Treatment No Information Progress Notes * Neena CLEMENTBruceB:1985 ( 39 yo F)Acc No.[id number]:10/30/2023 Skin Testing Patient: Farida WOODALL Provider: Ja Krueger PA-C :1985 A ge:38 Y S ex:Female Date:10/30/2023 Address:[address] [facility] [address] [id number] Pcp:Remi Rodriguez M.D. Subjective: * Chief Complaints: * 1 . Skin testing. * Medical History: Objective: * Vitals: Assessment: Plan: * Treatment: * Billing Information: * Visit Code: * Procedure Codes: * Electronic signature of Sergio Krueger PA-C on 10/24/2024 at 09:03 AM CDT Sign off status: Pending * Provider: Ja Krueger PA-C Date: 0 10/30/2023 Generated for Mary garcia/Yessenia/Francisco on: 0 10/24/2024 09:03 AM CDT
--- OUTSIDE RECORDS SUMMARY | 2024-10-24 09:03 | XMS_ITS | Clinical Summary ---
Author Organization 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 MAT MACHINE TENDER Gender Identity Not on file Sexual Orientation Not on file Last Filed Vital Signs Vital Sign Reading Time Taken Comments Blood Pressure 120/82 04/16/2012 8:30 PM MAT MACHINE TENDER Pulse - - Temperature 36.8 C (98.2 F) 04/16/2012 6:37 PM MAT MACHINE TENDER Respiratory Rate 18 04/16/2012 7:03 PM MAT MACHINE TENDER Oxygen Saturation 94% 04/16/2012 8:30 PM MAT MACHINE TENDER Inhaled Oxygen Concentration - - Weight 77.1 kg (170 lb) 04/16/2012 6:37 PM MAT MACHINE TENDER Height 170.2 cm (5' 7) 04/16/2012 6:37 PM MAT MACHINE TENDER Body Mass Index 26.63 04/16/2012 6:37 PM MAT MACHINE TENDER Plan of Treatment Health Maintenance Due Date Last Done Comments DTAP/TDAP/TD VACCINES (1 - Tdap) 2005 HEPATITIS B VACCINES (1 of 3 - 19+ 3-dose series) 08/13 HPV/Cotest (21-29) 09/10/2007 HPV VACCINES (1 - 3-dose SCDM series) 2013 CERVICAL CANCER SCREENING 2016 HPV/Cotest (30-65) 2016 PAP SMEAR 2016 INFLUENZA VACCINE (#1) 2024 Care Teams Conductor Sleeping Car Relationship Specialty Start Date End Date Ashley Alvarenga MD PCP - General Family Practice 04/16/12
--- OUTSIDE RECORDS SUMMARY | 2024-10-24 09:03 | XMS_ITS | Encounter Summary ---
Author Organization [facility] Address [address] [place] [address] Phone Care Team Providers Care Nuclear Plant Operator Name Role Phone Remi Rodriguez MD Primary Care Provider [phone] Encounter Details Date Type Department Care Team (Latest Contact Info) Description 05/02/2017 Orders Only [facility] CONVERSION Scanning, Provider Social History Tobacco Use Types Packs/Day Years Used Date Smoking Tobacco: Never Alcohol Use Standard Drinks/Week Comments Yes 0 (1 standard drink = 0.6 oz pur e alcohol) Comments Unknown Sex and Gender Information Value Date Recorded Sex Assigned at Not on file Legal Sex Female 11:06 AM MEASURING MACHINE OPERATOR Gender Identity Not on file Sexual Orientation Not on file documented as of this encounter Plan of Treatment Not on file documented as of this encounter Procedures Procedure Name Priority Date/Time Associated Diagnosis Comments OBSTETRIC/GYNECOLOGY ULTRASONOGRAPHY REPORT 05/02/2017 9:52 AM CDT documented in this encounter Results * OBSTETRIC/GYNECOLOGY ULTRASONOGRAPHY REPORT (05/02/2017 9:52 AM CDT) Anatomical Region Laterality Modality Ultrasound us Provider Scanning IMG OB US PROCEDURES Final Res ult documented in this encounter Visit Diagnoses Not on filedocumented in this encounter Care Teams Nuclear Plant Operator Relationship Specialty Start Date End Date Remi Rodriguez MD PCP - General 05/02/17 documented as of this encounter
--- OUTSIDE RECORDS SUMMARY | 2024-10-24 09:03 | XMS_ITS | Patient Health Record ---
Author Organization [employer] [facility] ([address]) Address [address] [place] [address] Care Team Providers Care Sales Broker Name Role Phone Remi Rodriguez M.D. Primary Care Provider Mary Cristopher Power Unavailable [phone] Emmanuel Hall Unavailable Unavailable Rhonda Corbin Unavailable [phone] Allergies Allergen (clinical drug ingredient) Drug/Non Drug Allergy documented on EMR Reaction Allergy Type Onset Date Status levofloxacin levoFLOXacin other reaction Drug Allergy Active montelukast Singulair other reaction Drug Allergy Active Reason For Referral No Information Medications Medication SIG (Take, Route, Frequency, Duration) Notes Start Date End Date Status ZyrTEC Allergy 10 MG 1 tab(s) orally once a day Active Albuterol Sulfate (5 MG/ML) 0.5% 0.5 mL by nebulizer every 6 hours Active Advair HFA 230-21 MCG/ACT 2 puff(s) inhaled 2 times a day; Duration: 30 day(s) Active Lexapro 20 MG 1 tab(s) orally once a day Active AEROCHAMBER MDI SPACER - MOUTHPIECE (ADULT) N/A As directed PO Per asthma action plan; Duration: 30 day(s) Active Atorvastatin Calcium 10 MG Oral; Duration: 90 Days Active ADDERALL XR 20 mg 1 cap(s) orally once a day (in the morning); Duration: 30 day(s) Not-Taking ADVAIR HFA CFC free 230 mcg-21 mcg/inh 2 puff(s) inhaled 2 times a day; Duration: 30 days Active Ipratropium [place] 0.06 % 2 sprays in each nostril Nasally Twice a day; Duration: 30 days 03/25/2024 Active PREDNISONE 20 mg 1 tab(s) orally once a day; Duration: 7 day(s) 11/15/2021 Not-Taking BENZONATATE 100 mg 1 cap(s) orally 3 times a day; Duration: 5 day(s) 11/15/2021 Not-Taking SINGULAIR 10 mg 1 tab(s) orally once a day Not-Taking CONTROL PILL 1 TABLET BY MOUTH DAILY; Duration: 30 DAYS *Please review for potential replacement for e-prescription and drug interaction check* Not-Taking Wellbutrin XL 300 MG 1 tab(s) orally every 24 hours; Duration: 30 day(s) Not-Taking DUPIXENT (DUPILUMAB) 300 mg/2 mL 300 mg subcuatneous injection every other week; Duration: 120 days Active Adderall XR 20 MG 1 cap(s) orally once a day (in the morning); Duration: 30 day(s) Not-Taking ALBUTEROL 5 mg/mL 0.5 mL by nebulizer every 6 hours Active predniSONE 20 MG 1 tab(s) orally once a day; Duration: 7 day(s) 11/15/2021 Not-Taking Benzonatate 100 MG 1 cap(s) orally 3 times a day; Duration: 5 day(s) 11/15/2021 Not-Taking Singulair 10 MG 1 tab(s) orally once a day Not-Taking Albuterol Sulfate HFA 108 (90 Base) MCG/ACT 1 puff as needed Inhalation every 4 hrs Active PROAIR HFA 90 mcg/inh 2 puff(s) inhaled 4 times a day Active Semaglutide Active Flonase Allergy Relief 50 MCG/ACT 1 spray(s) intranasally once a day Active FLONASE 50 mcg/inh 1 spray(s) intranasally once a day Active NASAL WASHES N/A as directed intranasally as needed; Duration: 30 Active ZYRTEC 10 mg 1 tab(s) orally once a day Active DUPIXENT (DUPILUMAB) 300 mg/2 mL 300 mg subcuatneous injection every other week; Duration: 30 days Active Wixela Inhub 500-50 MCG/ACT 1 puff Inhalation Twice a day; Duration: 30 days 04/07/2024 Active LEXAPRO 20 mg 1 tab(s) orally once a day Not-Taking LISDEXAMFETAMINE 40 MG 1 CAP(S) ORALLY ONCE A DAY (IN THE MORNING) *Please review for potential replacement for e-prescription and drug interaction check* Not-Taking WELLBUTRIN XL 300 mg/24 hours 1 tab(s) orally every 24 hours; Duration: 30 day(s) Not-Taking Immunizations Vaccine Route Administration Date Status Comme nts NOC PedvaxHIB IM Intramuscular 08/30/2020 Administered NOC Pneumovax 23 IM Intramuscular 08/30/2020 Administered NOC Influenza-Fluzone Unknown 03/03/2019 Administered NOC Flucelvax Quadrivalent Unknown 12/01/2019 Refused NOC Fluzone Quadrivalent Unknown 11/13/2019 Administere d Flucelvax IM Intramuscular 11/14/2018 Administered COVID-19 (Moderna) Unknown 02/18/2020 Administered Flublok quadrivalent Unknown 12/02/2020 Administered Social History Tobacco Use: Social History Observation Description Date Details (start date - stop date) Never Smoker NA - NA Sex Assigned At : Social History Observation Description Sex Assigned At Female Smoking Smart Form: Question Answer Notes Are you a: never smoker Tobacco Control (Standard) Question Answer Notes Tobacco use: Nonsmoker Problems Problem Type SNOMED Code ICD Code Onset Dates Problem Status W/U Status Risk Notes Problem Chronic allergic conjunctivitis (70852136) Other chronic allergic conjunctivitis (H10.45) Active confirmed Problem Allergic rhinitis caused by pollen (disorder) (62563421) Allergic rhinitis due to pollen (J30.1) Active confirmed Problem Chronic sinusitis (78497415) Chronic sinusitis, unspecified (J32.9) Active confirmed Problem Uncomplicated severe persistent asthma (486509425) Severe persistent asthma, uncomplicated (J45.50) Active confirmed Problem Cough (16366417) Cough (R05) Active confirmed Problem Allergic rhinitis caused by animal hair and dander (823598996622123) Allergic rhinitis due to animal (cat) (dog) hair and dander (J30.81) Active confirmed Problem Polyp of nasal cavity (042544913) Polyp of nasal cavity (J33.0) Active confirmed Problem Eruption of skin (528822005) Rash and other nonspecific skin eruption (R21) Active confirmed Problem Gastro-esophageal reflux disease without esophagitis (527704102) Gastro-esophageal reflux disease without esophagitis (K21.9) Active confirmed Problem Vitamin D deficiency (84391641) Vitamin D deficiency, unspecified (E55.9) Active confirmed Problem Adverse effect o f other systemic antibiotics, subsequent encounter (T36.8X5D) Active confirmed Problem History of systemic steroid therapy (426352046334109) Personal history of systemic steroid therapy (Z92.241) Active confirmed Vital Signs Blood pressure diastolic 76 mm Hg 03/25/2024 Oximetry 100 % 03/25/2024 Height 67.5 in 03/25/2024 Blood pressure systolic 122 mm Hg 03/25/2024 Weight 180.8 lbs 03/25/2024 BMI 27.9 kg/m2 03/25/2024 Encounters Encounter Location Date Provider Diagnosis [facility] [address] [place] [phone] 10/30/2023 Rhonda Corbin Allergic rhinitis du e to pollen J30.1 ; Allergic rhinitis due to animal (cat) (dog) hair and dander J30.81 ; Other chronic allergic conjunctivitis H10.45 ; Severe persistent asthma, uncomplicated J45.50 ; Chronic sinusitis, unspecified J32.9 ; Vitamin D deficiency, unspecified E55.9 ; Nasal polyp, unspecified J33.9 and Elevated blood-pressure reading, without diagnosis of hypertension R03.[address] [address] 03/25/2024 Rhonda Corbin Allergic rhinitis du e to pollen J30.1 ; Allergic rhinitis due to animal (cat) (dog) hair and dander J30.81 ; Other chronic allergic conjunctivitis H10.45 ; Severe persistent asthma, uncomplicated J45.50 ; Chronic sinusitis, unspecified J32.9 ; Vitamin D deficiency, unspecified E55.9 ; Nasal polyp, unspecified J33.9 and Elevated blood-pressure reading, without diagnosis of hypertension R03.[address] [address] 10/21/2024 Rhonda Corbin [address] [address] 04/03/2024 Cristopher Krueger Severe persistent asthma, uncomplicated J45.50 [facility] [address] [facility] [address] [place] [address] 01/17/2024 Cristopher Krueger [facility] [address] [place] [phone] 10/30/2023 Cristopher Krueger Assessments Encounter Date Diagnosis (ICD Code) Assessment Notes Treatment Notes Treatment Clinical Notes Section Notes 10/30/2023 Allergic rhinitis due to pollen (ICD-10 - J30.1) Farida clearly suffers from atopic disease based upon our prior skin testing and history. Accordingly, we have encouraged her medication regimen, nasal washes and allergy-specific avoidance measures. We also discussed adjunctive therapies including subcutaneous, specific allergen immunotherapy as relates to the treatment and prevention of atopic disease, to include the risks, benefits and alternatives to this care. - Farida presented today to update SPT as she is interested in SCIT. - Farida is interested in SCIT via rapid desensitization. She is to premedicate with Zyrtec and Pepcid. Will send AIE when she is starting SCIT. - Follow-up at first cluster visit 10/30/2023 Allergic rhinitis due to animal (cat) (dog) hair and dander (ICD-10 - J30.81) Follow allergen avoidance, meds and consider SCIT as an adjunctive treatment to current regimen 03/25/2024 Allergic rhinitis due to pollen (ICD-10 - J30.1) Farida clearly suffers from atopic disease based upon our prior skin testing and history. Accordingly, we have encouraged her medication regimen, nasal washes and allergy-specific avoidance measures. We also discussed adjunctive therapies including subcutaneous, specific allergen immunotherapy as relates to the treatment and prevention of atopic disease, to include the risks, benefits and alternatives to this care. - Farida presented recently to update SPT as she is interested in SCIT. - Farida is interested in SCIT via rapid desensitization. She is to premedicate with Zyrtec and Pepcid. Will send AIE when she is starting SCIT. - Follow-up at first cluster visit 03/25/2024 Allergic rhinitis due to animal (cat) (dog) hair and dander (ICD-10 - J30.81) Follow allergen avoidance, meds and consider SCIT as an adjunctive treatment to current regimen 04/03/2024 Severe persistent asthma, uncomplicated (ICD-10 - J45.50) 03/25/2024 Other chronic allergic conjunctivitis (ICD-10 - H10.45) Given ocular signs and symptoms I encouraged allergy avoidance measures and meds as above. If symptoms persist, consider adding additional medications including intraocular antihistamine/mast cell stabilizer, PRN and consider SCIT as an adjunctive measure 10/30/2023 Other chronic allergic conjunctivitis (ICD-10 - H10.45) Given ocular signs and symptoms I encouraged allergy avoidance measures and meds as above. If symptoms persist, consider adding additional medications including intraocular antihistamine/mast cell stabilizer, PRN and consider SCIT as an adjunctive measure 10/30/2023 Severe persistent asthma, uncomplicated (ICD-10 - J45.50) Farida has severe asthma with spirometry at prior visit showing improvement in FEV1 by 480 cc or 25% post bronchodilator diagnostic of asthma by ATS criteria. - Remains on Advair BID overall without interval issues. Does report sore throat with Advair dosing, has also occurred with other devices. Continue to rinse mouth after use. - In 09/2018 we started therapy with Dupixent. She again reports that this has improved her symptoms drastically. Continue 300 mg of Dupixent every 2 weeks. Consider Trelegy if symptoms return. Has not needed SAB for the past year. - Continue Dupixent logs at home. - Follow-up as above for further evaluation and management 03/25/2024 Severe persistent asthma, uncomplicated (ICD-10 - J45.50) Farida has severe asthma with spirometry at prior visit showing improvement in FEV1 by 480 cc or 25% post bronchodilator diagnostic of asthma by ATS criteria. - Remains on Advair BID overall without interval issues. Does again sore throat with Advair dosing, has also occurred with other devices. Will trial Breo, one puff, QD. Order sent. She is aware to rinse her mouth after use. - In 09/2018 we started therapy with Dupixent. She again reports that this has improved her symptoms drastically. Continue 300 mg of Dupixent every 2 weeks. Consider Trelegy if symptoms return. Has not needed SAB for the past year. ACT is 25. - Continue Dupixent logs at home. - Follow-up as above for further evaluation and management 03/25/2024 Chronic sinusitis, unspecified (ICD-10 - J32.9) CRS with nasal polyposis typically accompanied by otitis. Ordered repeat modified PIDD work-up, inadequate HiB and S. pneumoniae titers, recommended Pneumovax and HiB vaccines which she received. Recently with sinus infecton treated with abx for sinus infection. - Consider rechecking titers if another infection occurs 10/30/2023 Chronic sinusitis, unspecified (ICD-10 - J32.9) CRS with nasal polyposis typically accompanied by otitis. Ordered repeat modified PIDD work-up, inadequate HiB and S. pneumoniae titers, recommended Pneumovax and HiB vaccines which she received. Recently with sinus infecton treated with abx for sinus infection. - Consider rechecking titers if another infection occurs 10/30/2023 Vitamin D deficiency, unspecified (ICD-10 - E55.9) Vitamin D borderline at last check, unsure if PCP is following. - Address next visit 03/25/2024 Vitamin D deficiency, unspecified (ICD-10 - E55.9) Vitamin D borderline at last check, unsure if PCP is following. - Address next visit 03/25/2024 Nasal polyp, unspecified (ICD-10 - J33.9) History of nasal polyps. Had first sinus surgery for bilateral polyps at the age of 20, in 2004, with an ENT in [place], [place] where she attended college. Then in 2009, she had another sinus surgery for return of her nasal polyps, this was done by Dr. Germain. Nasal polyps have not returned since then. PE normal today with no interval loss of smell. - Consider updated ENT evaluation due to history of nasal polyps, suggested Dr. Hammond or [facility] 10/30/2023 Nasal polyp, unspecified (ICD-10 - J33.9) History of nasal polyps. Had first sinus surgery for bilateral polyps at the age of 20, in 2004, with an ENT in [place], [place] where she attended college. Then in 2009, she had another sinus surgery for return of her nasal polyps, this was done by Dr. Germain. Nasal polyps have not returned since then. PE normal today with no interval loss of smell. - Consider updated ENT evaluation due to history of nasal polyps, suggested Dr. Hammond 10/30/2023 Elevated blood-pressure reading, without diagnosis of hypertension (ICD-10 - R03.0) BP previously elevated without signs of hypertensive urgency or emergency. Continue serial checks 03/25/2024 Elevated blood-pressure reading, without diagnosis of hypertension (ICD-10 - R03.0) BP previously elevated without signs of hypertensive urgency or emergency. Continue serial checks 10/30/2023 Other 03/25/2024 Other Plan Of Treatment Pending Test Test Name Order Date STREPTOCOCCUS PNEUMONIAE IGG AB (23 SERO TYPES) 12/01/2019 STREPTOCOCCUS PNEUMONIAE IGG AB (23 SERO TYPES) 08/30/2020 TETANUS ANTITOXOID ANTIBODY (EIA) 2019 DIPHTHERIA ANTITOXOID ANTIBODY 0 HEPATITIS B SURFACE ANTIBODY QL 02/22/19 21 IMMUNOGLOBULINS G/A/M 12/01/2019 VITAMIN D, 25-OH, TOTAL, [place] 12/01/2019 HAEMOPHILUS INFLUENZAE B ANTIBODY, IGG 1 HAEMOPHILUS INFLUENZAE B ANTIBODY, IGG 0 08/30/2020 COVID-19 TESTING (Hospital-based PCR) Insurance Providers Payer Name Payer Address Payer Phone Subscriber Number Group Number Insured Name Patient Relationship to Insured Coverage Start Date Coverage End Date [facility] [address] [address] [place] [phone] [id number] Ovidio Franklin Spouse - patient is the spouse of the insured 5 Medical (General) History Medical History History ICD Code Severe persistent asthma, uncomplicated Chronic sinusitis, unspecified Psoriasis, unspecified Nasal polyp, unspecified Allergic rhinitis due to animal (cat) (d og) hair and dander Allergic rhinitis due to pollen Anxiety disorder, unspecified pre diabetic high chelstrol Surgical History Surgery Date(Month/Year) Polypectomy 2004 Polypectomy 2009 hernia mesh surgery 2022 Hospitalization History Reason Date(Month/Year)
--- OUTSIDE RECORDS SUMMARY | 2024-10-24 09:03 | XMS_ITS | Clinical Summary ---
Author Organization [facility] Address [address] [place] [address] Care Team Providers Care Training Administrator Name Role Phone Remi Rodriguez MD Primary Care Provider [phone] Allergies Active Allergy Reactions Criticality Noted Date Comments Aspirin Unknown Has been directed by several ENT physicians not to take Levofloxacin Joint pain Low 08/30/2015 Reaction: joint pain, Moxifloxacin Joint pain Low 07/21/2015 Reaction: joint pain, Quinolones Joint pain Low Medications PNV with nnhnimn-yoxx-LT 27 mg iron- 1 mg tablet Take one tablet daily by mouth 6 Active cetirizine (ZyrTEC) 10 mg chewable tablet daily. Acti ve montelukast (SINGULAIR) 10 mg tablet 8 Active escitalopram (LEXAPRO) 5 mg tablet 8 Active fluticasone (FLONASE) 50 mcg/actuation nasal spray 2 times daily Acti ve breast pump device 1 kit as needed (to empty breasts). 1 Device 8 Active Additional Information Patient not taking.Reported on 04/06/2022 albuterol (PROVENTIL,IRMA FRANKO) 2.5 mg /3 mL (0.083 %) nebulizer solutionIndicati ons:Severe persistent asthma without complication (HCC) Take 3 mL (2.5 mg total) by nebulization 4 (four) times a day as needed for wheezing or shortness of breath. 25 vial 5 8 Active mometasone-formo terol (DULERA 200) 200-5 mcg/actuation inhaler Inhale 2 puffs 2 (two) times a day. Rinse mouth with water after use to reduce aftertaste and incidence of candidiasis. Do not swallow. 1 Inhaler 3 8 Active Adderall XR 20 mg 24 hr capsule 3 Active buPROPion XL (WELLBUTRIN XL) 300 mg 24 hr tablet Take 300 mg by mouth every morning 2 Active Advair HFA 230-21 mcg/actuation inhaler Inhale 2 puffs 2 (two) times a day 3 Active Tri-Sprintec, 28, 0.18/0.215/0.25 mg-35 mcg (28) per tablet 3 Active dexAMETHasone (DECADRON) 1 mg tablet TAKE 1 TABLET BY MOUTH AT 11 PM NIGHT BEFORE AND DO FASTING BLOOD TEST NEXT DAY IN THE MORNING 3 Active Dupixent Syringe syringe 3 Active FLUoxetine (PROzac) 20 mg capsule Take 1 capsule (20 mg total) by mouth daily 3 Active lisdexamfetamine (VYVANSE) 40 mg capsule Take 1 capsule (40 mg total) by mouth daily 4 Active metFORMIN XR (GLUCOPHAGE XR) 500 mg 24 hr tablet Take 2 tablets (1,000 mg total) by mouth 4 Active Active Problems Problem Noted Date Diagnosed Date Encounter for induction of labor 09/20/2017 Overview (09/20/2017): #Labor: Admit to L&D. Consents signed and placed in chart. Send CBC/T&S. Induction of labor with miso and cook catheter at 0910. Epidural at 1130. Will start OT and titrate per the protocol to continue her induction. #FWB: Category II, but reassuring given moderate variability #ID: GBS negative. HIV negative. #Indications for UDS: none #M/B: Plans to breastfeed. Plans to use IUD for contraception. Will get at 6 wk PP follow up visit. Intrauterine growth restriction in prior pregnan cy 05/02/2017 Overview (09/05/2017): Prior IUGR with successful vaginal delivery ; Will plan for surveillance as above. Assessment & Plan (08/01/2017 8:55 AM CDT): AGA on ultrasound today. Continue serial growth assessment and initiate NSTs from 32 weeks as indicated above. Antepartum placenta previa without hemorrhage Supervision of high risk 05/16/2015 Overview (09/12/2017): - Complete care with MFM, though she gets her NSTs with Dr. Esteban. - Labs: Up to date. GBS negative. - Follow up: For twice weekly NSTS with Dr. Esteban. IOL in 1 week. Patient desires no interns and no med students during delivery - [] Co-management vs. [x] Full MFM Care - Referring Provider: Eulalia - Labs: Rh [O+ ] Ab [neg ] Rubella [immune ] HIV/HepBSAg/RPR [neg ] GC/CT [neg ] - Pap: s/p nl pap in 07/2015 - CBC: 02/2017 Hgb [13.5 ] , Plt [275 ] - [] 1hr gtt at 24-28wks: Results requested from Dr. Esteban at [facility]. Patient states that she had an abnormal 1hr GCT but normal 3hr GTT. - [x] Tdap (27-36wks): complete - [x] Genetic Screening: declined - [x] Rhogam (if Rh neg): not indicated - [x] GBS at 35wks: NEGATIVE - [] MOD: with IOL at 39 weeks for 09/20/17, requested at last visit. However, patient has breech fetus today. Patient to be scheduled for ECV on 09/10. If unsuccessful, IOL will need to be changed to delivery. - [x] TOD/Delivery Location: [facility]/T - [x] : YES - [x] PpBCM: Mirena IUD with Dr. Esteban 6 weeks PP - [] EPDS Antepartum [] EPDS Assessment & Plan (08/14/2017 1:50 PM CDT): FKC/PEC/PTL precautions reviewed. Assessment & Plan (08/01/2017 9:15 AM CDT): Patient desires transfer of care to complete [facility] care. She was oriented to our practice and understands she will need to deliver at [facility] at [facility]. Patient will return in 2 weeks for a clinic visit and in 4 weeks for a growth ultrasound and clinic visit. Anxiety 12/02/2014 Chronic sinusitis 03/20/2014 Overview (05/19/2016): Chronic sinusitis Depression 12/15/2013 Overview (08/28/2017): Depression -Denies any s/sx of depression today. Attention deficit disorder 12/15/2013 Overview (05/19/2016): ADHD Severe Persistent Asthma 06/28/2013 Overview (09/20/2017): -Severe persistent asthma: Diagnosed age 17. Peak flow 450 at best. Previously followed with Pulm in her prior , but has not been seen since 2016 Dr. Benz. She is managed on Breo inhaler (inhaled corticosteroid plus long acting beta agonist) unsure of her dose, albuterol nebs and inhaler PRN, Singulair, Flonase, Zyrtec. She uses nebs a few times weekly. She has wheezes bilaterally at baseline. Has never required intubation. Last PFTs 08/30/15 revealed FEV1=51% of predicted. - Recommended that she re-establish care with Pulmonology, patient states she had to cancel appointment on 06/11, rescheduled for 11/05. - Counseled patient that can worsen asthma in 1/3 of cases. She is at risk for exacerbation and if that occurs she would require definite hospitalization. She was counseled regarding symptoms to observe for and to present to hospital if peak flow is persistently <50% of her best. She is aware that steroids can be used during exacerbation if needed. - Recommend continuing all home meds as above. Patient is unsure of her dose of Breo, and she may require an increased dose, but is reluctant at this time. - Counseled regarding increased risk for IUGR and IUFD - s/o inpatient hospitalization 08/2017 for asthma exacerbation, discharged on prednisone taper x 5 days. Surveillance plan: -serial growth ultrasounds every 3-4 weeks -twice weekly NSTs beginning at [address] Esteban at [facility]) for Tuesdays/Fridays -Delivery at 39 weeks at [facility]. Scheduled 09/20/17 @ 0530. Hospital course: -Exam with end expiratory wheezes bilaterally, SpO2 94 intermittently, will continue to monitor -Continue on Breo inhaler, Zyrtec, Singulair -Flonase and Albuterol nebs prn Assessment & Plan (08/28/2017 3:57 PM CDT): -Symptoms stable today. Assessment & Plan (08/14/2017 2:05 PM CDT): -Patient stable today. No change in her home medications. -Patient encouraged to continue home peak flow assessments. Baseline is 450. Patient has been reaching this. Assessment & Plan (08/01/2017 9:14 AM CDT): Patient stable on the above regimen. Peak flows 250s (>50% of 425 - 450 best). Continue serial growth ultrasounds q 3 - 4 weeks, and initiate 2x/week NSTs from 32 weeks. Patient already arranged to do the NSTs at [facility]. Asthma with status asthmaticus Resolved Problems Problem Noted Date Diagnosed Date Resolved Date BREECH 08/28/2017 09/05/2017 Overview (08/30/2017): -08/28/17. Breech presentation. We discussed the possibility of an external cephalic version to convert the breech to a vertex presentation. We discussed that the success rate for this procedure generally is around 50%, but that multiparous women generally have higher success rates compared to nulliparous women. We also discussed the risks associated with the procedure, principally the risk of abruption or intolerance requiring an emergent delivery. We discussed that the risk of this is on the order of 1-2%. We also discussed the risk of rupture membranes or labor post procedure. We discussed analgesia options including IV narcotics and epidural. An external cephalic version would not be performed until after 36 completed weeks of gestation due to high re-version risk. After counseling desires ECV. Aware that if unsuccessful, will need primary delivery at 39 weeks. All questions answered. Patient verbalized understanding. ECV scheduled 09/12/17 @ 0830, pt aware Immunizations Immunization Administration Dates Next Due Influenza, Quadrivalent, Maren l Culture-based MDCK, Antibiotic Free, Intramuscular 11/05/2017 Influenza, Split 12/23/2012 Influenza, Trivalent, IM (MDV) 12/13/2013,2013 MMR 09/22/2017(Deferred: Other - MMR not needed; rubella immune) Tdap 08/14/2017 Surgical History Surgery Date Site/Laterality Comments INGUINAL HERNIA REPAIR 02/13/1988 - 02/11/1989 Bilateral OTHER SURGICAL HISTORY Chronic Sinusitis: Sinus Surgery SINUS SURGERY 2004, 2009 Bilateral Medical History Medical History Date Comments Hx Other Medical Chronic Sinusit is Hx Other Medical Chronic Bronchi tis Atopic rhinitis Allergic rhiniti s Attention deficit disorder ADHD Hx Other Medical Atopic eczema Asthma Asthma Depression Anxiety Abnormal Pap smear of cervix Family History Medical History Relation Name Comments ADD / ADHD Father Bipolar disorder Father Coronary artery disease Maternal Grandmother Coronary artery disease; ADD / ADHD Mother ADD/ADHD; Stroke Other 1 Family history of Stroke; Coronary artery disease Other 2 Fami ly history of Coronary artery disease; Stroke Paternal Grandmother Stroke; ADD / ADHD Sister ADD/ADHD; Relation Name Status Comments Father Alive Maternal Grandmother Mother Other 1 Other 2 Paternal Grandmother Sister Social History Tobacco Use Types Packs/Day Years Used Date Smoking Tobacco: Never Smokeless Tobacco: Never Tobacco Cessation:Counseling Given: Not Answered Alcohol Use Standard Drinks/Week Comments No 0 (1 standard drink = 0.6 oz pur e alcohol) Comments Unknown Sex and Gender Information Value Date Recorded Sex Assigned at Not on file Legal Sex 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 Gender Identity Not on file Sexual Orientation Not on file 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 Not on file Not on file Not on file Obstetrics History Para Term AB IAB SAB Ectopic Multiple Livin g Live Births 2 2 2 0 2 2 Date Outcome GA Total Labor Labor/2nd/3rd Weight Sex Type Anes PTL Zuleika A1 A5 Name Clin 2015 Term 37w 0d 2.155 kg (4 lb 12 oz) F Vag-S pont Epidur al N Livin g Complications:Other (Comment ),Asthma,IUGR (intrauterine growth restriction) affecting care of mother 2017 Term 39w 0d 6h 28m 6h 15m/0h 10m/0h 03m 3.03 kg (6 lb 10.9 oz) M Vag-S pont Epidvikki al N Livling g 9 9 BRINDA CLEMENT, Nando Sharma MD Complications: Intolera nce Delivery Location:[facility] Main C ampus ([facility] 58LD) Last Filed Vital Signs Vital Sign Reading Time Taken Comments Blood Pressure 119/84 07/14/2023 2:17 PM CDT Pulse 92 07/14/2023 2:17 PM CDT Temperature 36.4 C (97.6 F) 07/14/2023 2:17 PM CDT Respiratory Rate 18 07/14/2023 2:17 PM CDT Oxygen Saturation 97% 07/14/2023 2:17 PM CDT Inhaled Oxygen Concentration - - Weight 91.8 kg (202 lb 6.4 oz) 07/14/2023 2:17 P M CDT Height 170.2 cm (5' 7.01) 07/14/2023 2:17 PM CD T Body Mass Index 31.69 07/14/2023 2:17 PM CDT Plan of Treatment Health Maintenance Due Date Last Done Comments Cervical Cancer Screening 1986 Depression Screening 1986 Varicella Vaccines (1 of 2 - 13+ 2-dose series) 09/10/1999 Hepatitis B Screening 2004 Regular Well Visit/Exam 18-64 2004 HPV Vaccines (1 - 3-dose SCD M series) 2013 Pneumococcal vaccine <65 (2 of 2 - PCV) 08/30/2021 08/30/2020 Covid-19 Vaccine (4 - 2024-2 6 season) 2024 01/30/2021, 03/18/2020, 02/19/2020 Influenza Vaccine (#1) 2024 , 12/18/2019, 11/13/2019, Additional history exists DTaP/Tdap/Td Vaccine (3 - Td or Tdap) 08/15/2027 08/14/2017, 04/19/2015 Hepatitis C Screening Completed 06/15/2017 Procedures Procedure Name Priority Date/Time Associated Diagnosis Comments HEPATITIS C ANTIBODY STAT 06/15/2017 3:03 PM CDT from Last 3 Months or Most Recently Relevant to Health Maintenance Results * Hepatitis C antibody (06/15/2017 3:03 PM CDT) Hep C Ab Non-Reacti ve Non-Reacti ve SARAH CARDENASCH Comment:Testing performed by : [facility], [address] [place] [address], [place]., [address] Blood specimen (specimen) 06/15/2017 3:03 PM CDT 06/15/2017 6:10 PM CDT Narrative SARAH CARDENASCH - 06/15/2017 6:48 PM CDT us Doroteo Parker MD LAB MICROBIOLOGY - GENERAL ORD ERABLES Final Result Performing Organization Address City/State/[facility] Co de Phone Number [facility]AH [facility] [address] [facility]. Department [place] [address] from Last 3 Months or Most Recently Relevant to Health Maintenance Insurance [facility] CHO[employer] HMO/PPO Address: [facility] [address] [place] [address] [facility] CHO[employer]US [facility] HMO/PPO Address: [address] [address] [place] [address] [place] [id number] [facility] CHO[employer]US [facility] HMO/PPO Address: [address] [place] [address] [place] [address] Advance Directives For more information, please contact: [phone] * Full Code (Latest Code Status on File) Date Activated Date Inactivated Comments 09/20/2017 7:08 PM 09/22/2017 3:58 PM Full CPR in c ase of cardiopulmonary arrest * Full Code Date Activated Date Inactivated Comments 09/20/2017 7:03 PM 09/20/2017 7:08 PM * Full Code Date Activated Date Inactivated Comments 08/17/2017 8:11 PM 08/18/2017 4:15 PM Care Teams Training Administrator Relationship Specialty Start Date End Date Remi Rodriguez MD PCP - General 05/02/17
--- OUTSIDE RECORDS SUMMARY | 2024-10-24 09:03 | XMS_ITS | Encounter Summary ---
Author Organization [facility] Healthcare Address [address] [place] [address] Care Team Providers Care Fiberglass Container Winding Operator Name Role Phone Remi Rodriguez MD Primary Care Provider [phone] [phone] Encounter Details Date Type Department Care Team (Late st Contact Info) Description 06/13/2017 Orders Only 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 Gender Identity Not on file Sexual Orientation Not on file documented as of this encounter Plan of Treatment Not on file documented as of this encounter Procedures Procedure Name Priority Date/Time Associated Diagnosis Comments OBSTETRIC/GYNECOLOGY ULTRASONOGRAPHY REPORT 07/11/2017 9:35 AM CDT OBSTETRIC/GYNECOLOGY ULTRASONOGRAPHY REPORT 06/13/2017 10:06 AM CDT documented in this encounter Results * OBSTETRIC/GYNECOLOGY ULTRASONOGRAPHY REPORT (07/11/2017 9:35 AM CDT) Anatomical Region Laterality Modality Ultrasound us Provider Scanning IMG OB US PROCEDURES Final Res ult * OBSTETRIC/GYNECOLOGY ULTRASONOGRAPHY REPORT (06/13/2017 10:06 AM CDT) Anatomical Region Laterality Modality Ultrasound us Provider Scanning IMG OB US PROCEDURES Final Res ult documented in this encounter Visit Diagnoses Not on filedocumented in this encounter Care Teams Fiberglass Container Winding Operator Relationship Specialty Start Date End Date Remi Rodriguez MD PCP - General 05/02/17 documented as of this encounter
--- OUTSIDE RECORDS SUMMARY | 2024-10-24 09:03 | XMS_ITS | Patient Health Record ---
Author Organization [facility] As [facility] Address [address] [place] [address] Care Team Providers Care Medicare Specialist Name Role Phone Lito Briggs Unavailable [phone] Reason For Referral No Information Medications Medication SIG (Take, Route, Frequency, Duration) Notes Start Date End Date Status Flowflex COVID-19 Ag Home Test Kit In Vitro *Reorder from [employer] for eRx and Interaction Alerts* 06/27/2023 Active buPROPion HCl ER (XL) 150 MG Tablet Extended Release 24 Hour Oral 06/27/2023 Active buPROPion HCl ER (XL) 300 MG Tablet Extended Release 24 Hour Oral 06/27/2023 Active Escitalopram Oxalate 20 MG Tablet Oral 06/27/2023 Active Tri-Sprintec 0.18/0.215/0.25 MG-35 MCG Tablet Oral 06/27/2023 Active AEROCHAMBER PLUS FLOW-VU SPACER (EA) MISCELLANEOUS *Reorder from [employer] for eRx and Interaction Alerts* 06/27/2023 Active metFORMIN HCl ER 500 MG Tablet Extended Release 24 Hour Oral 06/27/2023 Active Advair HFA 230-21 MCG/ACT Aerosol Inhalation 06/27/2023 Active Dupixent 300 mg/2 mL Solution Prefilled Syringe Subcutaneous 06/27/2023 Active DULoxetine HCl 30 MG Capsule Delayed Release Particles Oral 06/27/2023 Active Vyvanse 40 MG Capsule Oral 06/27/2023 Active Adderall XR 20 MG Capsule Extended Release 24 Hour Oral 06/27/2023 Active Social History Social History Additional Details Category Social Info Options Details Migrated Social History Migrated Social History Alcohol Intake: None 11/06/2022,Tobacco Years: Never smoker 08/16/2022 Plan Of Treatment No Information Insurance Providers Payer Name Payer Address Payer Phone Subscriber Number Group Number Insured Name Patient Relationship to Insured Coverage Start Date Coverage End Date [facility] [address] [place] [address] [id number] JOCELYNE CLEMENT Self - patient is the insured Medical (General) History Surgical History Surgery Date(Month/Year) Any surgical history Other 12/13/2004 Sinus surgery 12/13/2010
[2024-10-24 18:13] LABS: Hematocrit 43.6 % (37.0-47.0); Hemoglobin 14.1 g/dL (12.0-15.0); Immature Granulocyte Percent A 0.2 % (0-0.5); Lymphocytes Absolute Auto 2.10 K/mm3 (0.9-3.2); Mean Corpuscular HGB Conc 32.3 g/dl (32-36); Mean Corpuscular Hemoglobin 29.0 pg (26-34); Mean Corpuscular Volume 89.5 fl (80-100); Nucleated Red Blood Cells Absolute Auto 0.000 K/mm3 (0.0-0.012); Nucleated Red Blood Cells Perc 0.0 % (0.0-0.2); Platelet Count Result 323 k/mm3 (150-375); Red Blood Count 4.87 M/mm3 (4.2-5.4); White Blood Count 6.3 K/mm3 (4.5-10.0)
[2024-10-24 18:38] LABS: Iron 121 ug/dL (37-170)
[2024-10-24 19:14] LABS: Alanine Aminotransferase 16 U/L (6-35); Albumin Level 4.4 g/dL (3.5-5.1); Alkaline Phosphatase 69 U/L (38-126); Anion Gap 9 mmol/L (4-12); Aspartate Amino Transferase 40 U/L (14-36); Bilirubin,Total 1.0 mg/dL (0.2-1.3); Blood Urea Nitrogen 16 mg/dL (7-17); Calcium 9.0 mg/dL (8.4-10.2); Carbon Dioxide 25 mmol/L (22-30); Chloride 102 mmol/L (98-107); Cholesterol 225 mg/dL (0-200); Estimated Glomerular Filt Rate > 60; Glucose 88 mg/dL (65-110); HDL Direct 60 mg/dL; Potassium 3.9 mmol/L (3.4-5.0); Sodium 136 mmol/L (137-145); Total Protein 7.1 g/dL (6.3-8.2); Triglycerides 55 mg/dL (<150)
[2024-10-24 19:28] LABS: Hemoglobin A1C 5.4 % (<5.7)
[2024-10-24 20:07] LABS: Vitamin B12 955.0 pg/mL (239-931)
== END 2024-10-24 08:51 | disposition home or self-care (01) ==
LOC: ANHGOSHLAB 08:51
PROVIDERS: PCP Family Medicine; Visit Provider Family Medicine
DX: R73.03 Prediabetes (principal); R53.83 Other fatigue; E66.9 Obesity, unspecified; G47.419 Narcolepsy without cataplexy
CPT/HCPCS: 36415; 80053; 80061; 82306; 82607; 83036; 83540; 85025

== ENCOUNTER 2025-02-11 10:01 | Emergency (ER) | payer OTHER, SELFPAY ==
[2025-02-11 10:19] VITALS: BP 110/70; PULSE 96; RESP 16; TEMP 36.6; O2SAT 99
--- NOTE | 2025-02-11 10:37 | ED.URI ---
HPI - URI/Sore Throat General Chief Complaint: Upper Respiratory Infection Stated Complaint: strep testing, some type of virus Time Seen by Provider: 02/11/25 10:37 Source: patient Mode of arrival: ambulatory Limitations: no limitations History of Present Illness HPI Narrative: 39-year-old female presents with complaint of cough, nasal congestion, sore throat, fatigue for 3 days. Did at home COVID, influenza combo test times to and it was negative. Wants to rule out strep throat prior to going out of town. All systems reviewed and negative except as noted above. Related Data Home Medications ?Medication ?Instructions ?Recorded ?Confirmed ?Last Taken ?Type dupilumab 300 mg/2 mL subcutaneous 300 mg subcut .[id number] 06/19/19 02/11/25 Unknown History syringe (Dupixent) fluticasone propionate 50 2 spray intranasal DAILY 06/19/19 02/11/25 Unknown History mcg/actuation nasal spray,suspension fluticasone propionate 115 2 puff inhalation BID 03/07/21 02/11/25 Unknown History mcg-salmeterol 21 mcg/actuation HFA inhaler (Advair HFA) cholecalciferol (vitamin D3) 125 125 mcg PO DAILY 08/29/22 02/11/25 Unknown History mcg (5,000 unit) capsule cetirizine 10 mg capsule (Zyrtec) 10 mg PO DAILY PRN allergy symptoms 03/20/23 02/11/25 Unknown History magnesium 200 mg tablet 200 mg PO DAILY 04/09/23 02/11/25 Unknown History semaglutide 0.25 mg or 0.5 mg (2 0.25 mg subcut WEEKLY 09/27/23 02/11/25 Unknown History mg/3 mL) subcutaneous pen injector pyridoxine (vitamin B6) 10 mg 10 mg PO DAILY 10/23/24 02/11/25 Unknown History tablet Allergies Allergy/AdvReac Type Severity Reaction Status Date / Time Quinolones Allergy Unknown Joint Pain Verified 02/11/25 10:10 montelukast (From Singulair) AdvReac Unknown Depression Verified 02/11/25 10:10 [facility] Past Medical History Medical History Pre-diabetes Asthma Degenerative, intervertebral disc, cervical C4-5, C5-6 Depression Interdigital neuroma of right foot Contusion of foot, right Capsulitis of metatarsophalangeal (MTP) joint of right foot Rotator cuff impingement syndrome of right shoulder Spinal stenosis in cervical region Overweight (BMI 25.0-29.9) Tension headache COVID-19 Attention-deficit hyperactivity disorder, unspecified type Binge eating disorder Cervicalgia Gastroesophageal reflux disease without esophagitis Hemiplegic migraine, not intractable, without status migrainosus Nasal polyp, unspecified Psoriasis, unspecified Seborrheic dermatitis, unspecified Severe persistent asthma with exacerbation Surgical History Surgical History H/O ventral hernia repair 11/14/22 robotic assisted laparoscopic ventral hernia repair with trans abdominal preperitoneal placement of [employer] Ventralight ST mesh History of sinus surgery 2004 and 2009 Family History Family History Grandparent Hypertension Family history of cardiomyopathy CHD (congenital heart disease) Cerebrovascular accident Depression Mother Heart disease Depression Father Depression Heart disease Other HLD (hyperlipidemia) Social History Social History Smoking status: Never smoker Alcohol intake: current Alcohol use details: 2/MONTH Substance use: current Substance use type: marijuana Other substance usage details: EDIBLE MONTHLY Lack of Transportation: No Lack of Food: Never True Current Housing: I Have Housing Concerned About Future Housing: No Difficulty Paying Gas/Electric Bills: No Difficulty Paying for Meds: No Currently Unemployed: No Education: Associate Degree Difficulty w/ Childcare or Family Care: No Living arrangements: with family Occupation/Education: occupation Additional occupation/education comments: Dental Hygienist Gender identity (if verbalized by the patient): Female Sexual Orientation (if Verbalized by the Patient): Straight or Heterosexual Spiritual care concerns: No Comments At time of signature, agree with nursing past medical, surgical, social and family history. There is no relevant family history pertinent to the presenting complaint. Exam Narrative: GENERAL: This is a well-nourished, well-developed patient, in no apparent distress. HEAD: normocephalic, atraumatic. EYES: PERRL. Sclera clear/white. Vision is grossly intact. EARS: External ears normal, auditory canals clear and without drainage, TMs normal without perforation. Hearing grossly intact. NOSE: External nose normal with Congestion, clear nasal drainage THROAT: Mucous membranes moist, mild erythema postnasal drainage. No significant swelling or exudates NECK: Neck supple, non-tender without lymphadenopathy, masses or thyromegaly. CARDIOVASCULAR: Regular rate and rhythm without murmurs, gallops, or rubs. RESPIRATORY: Clear to auscultation. Breath sounds equal bilaterally. No wheezes, rales, or rhonchi. SKIN: warm, Dry, intact with no suspicious lesions or rash, good texture and turgor. NEURO: awake, alert, and oriented to person, place and time. There were no obvious focal neurologic abnormalities. EXTREMITIES: No joint tenderness, effusion, or edema noted. Course Course Level of Care: Express Care Visit Vital Signs Vital signs: Vital Signs Temperature 36.6 C 02/11/25 10:19 Pulse Rate 96 02/11/25 10:19 Respiratory Rate 16 02/11/25 10:19 Blood Pressure 110/70 02/11/25 10:19 Pulse Oximetry 99 02/11/25 10:19 Temperature 36.6 C 02/11/25 10:19 Pulse Rate 96 02/11/25 10:19 Respiratory Rate 16 02/11/25 10:19 Blood Pressure 110/70 02/11/25 10:19 Pulse Oximetry 99 02/11/25 10:19 reviewed MDM MDM Narrative Medical decision making narrative: negative rapid strep. Strep culture ordered. Patient is well-appearing, nontoxic. Lungs clear to auscultation. Recommend [id number] medications to treat viral symptoms. Differential Diagnosis Differential Diagnosis: Differential diagnostic considerations for upper respiratory infection include upper respiratory infection, croup, otitis media, sinusitis, viral infection, bronchitis, influenza, pharyngitis, strep, uvulitis.? Lab Data Labs: Lab Results 02/11/25 Range/Units 10:38 POC Grp A Strep Screen Negative (Negative) Discharge Plan Discharge Clinical Impression: Viral upper respiratory tract infection with cough Patient Disposition: Home Condition: Stable Instructions: Upper Respiratory Infection (ED) Additional Instructions: your strep test was negative today. A strep culture was ordered and results will take 2-3 days. If your strep culture is positive we will call you at that time and prescribed an antibiotic. Your symptoms are viral and may last 10-14 days. Take medications as prescribed. Use an vvay-dwo-nohavhr nasal spray such as Flonase or Nasacort. Use as directed on packaging. Purchase pseudoephedrine and take as directed on packaging. This medication is found by the pharmacist. Drink at least 64 oz of water a day. See your doctor if not improving. Patient Language: Romansh Prescriptions: New benzonatate 100 mg capsule 100 mg PO BID PRN (Reason: cough) Qty: 20 0RF methylprednisolone [Medrol (Jesús)] 4 mg tablets,dose pack See Rx Instructions PO .COMPLEX Qty: 21 0RF Rx Instructions: orally per package directions No Action Dupixent Syringe 300 mg/2 mL syringe 300 mg SUB-Q .[id number] fluticasone propionate 50 mcg/actuation spray,suspension 2 spray NASAL DAILY Rx Instructions: administer into each nostril Advair HFA 115-21 mcg/actuation HFA aerosol inhaler 2 puff inhalation BID semaglutide 0.25 mg or 0.5 mg (2 mg/3 mL) pen injector 0.25 mg subcut WEEKLY Rx Instructions: for 4 weeks pyridoxine (vitamin B6) 10 mg tablet 10 mg PO DAILY lisdexamfetamine [Vyvanse] 40 mg capsule 40 mg PO QAM Qty: 30 0RF Rx Instructions: November cholecalciferol (vitamin D3) 125 mcg (5,000 unit) capsule 125 mcg PO DAILY magnesium 200 mg tablet 200 mg PO DAILY Zyrtec 10 mg capsule 10 mg PO DAILY PRN (Reason: allergy symptoms) buspirone 7.5 mg tablet 7.5 mg PO BID PRN (Reason: anxiety) Qty: 60 2RF ondansetron HCl 4 mg tablet 4 mg PO Q6H PRN (Reason: nausea and vomiting) Qty: 20 1RF escitalopram oxalate [Lexapro] 20 mg tablet 20 mg PO DAILY Qty: 90 1RF metformin 500 mg tablet extended release 24 hr 500 mg PO BID Qty: 180 1RF atorvastatin 10 mg tablet 10 mg PO QHS Qty: 90 0RF Follow-up/Referrals: Remi Rodriguez MD [Primary Care Provider, Family Practice] Time of Disposition: 10:46
[2025-02-11 10:40] LABS: EDSTREPNEGPOS1 Negative (Negative)
== END 2025-02-11 10:49 | disposition home or self-care (01) ==
PROVIDERS: Emergency Provider Nurse Practitioner Family; PCP Family Medicine
DX: J06.9 Acute upper respiratory infection, unspecified (principal); B34.9 Viral infection, unspecified; R73.03 Prediabetes; M50.322 Other cervical disc degeneration at C5-C6 level; F32.A Depression, unspecified
CPT/HCPCS: 87081; 87880; 99213; G0463